=== PATIENT | female | born 1955 | race Caucasian/White ===

== ENCOUNTER 2019-01-11 06:00 | Day surgery (SDC) | payer OTHER ==
[~2019-01-11] VITALS: Ht 157.5 cm; Wt 104.2 kg
--- NOTE | 2019-01-11 07:27 | PREAC ---
Date/Time of Note Date/Time of Note DATE: 01/11/19 TIME: 07: Anesthesia Eval and Record Evaluation Time Pre-Procedure Interview DATE: 01/11/19 TIME: : Age 63 Sex female NPO: 8 hrs Preoperative diagnosis screening colon cancer Planned procedure colonoscopy Past Medical History Past Medical History: Includes Neuro: Other (chronic back pain) GI: Obesity Surgery & Anesthesia Issues No known issue Meds Anticoagulation: No Beta Stas within 24 hr: No Reason Beta Stas not given: Pt. not on B-Stas Meds reviewed: Yes Allergies Allergies Reviewed: Yes Labs/Studies Labs Reviewed: Other (n/a) test: N/A Pre-procedure Exam Airway: Adequate mouth opening, Adequate thyromental dist Mallampati: Mallampati II Teeth: Normal (upper partial dentures) Lung: Normal Heart: Normal ASA Physical Status ASA physical status: 2 Emergency: None Planned Anesthetic General/MAC: MAC, TIVA Planned Pain Management Parenteral pain med, Local by surgeon Pre-operative Attestations Prior to commencing anesthesia and surgery, the patient was re-evaluated, there was verification of: *The patient's identity *The results of appropriate recent lab work and preoperative vital signs *The above evaluation not changing prior to induction *Anesthetic plan, risk benefits, alternative and complications discussed with patient/family; questions answered; patient/family understands, accepts and wishes to proceed. JAYSON RIOS Jan 11, 2019 07:27
[2019-01-11 07:28] VITALS: Ht 157.5 cm; Wt 104.2 kg
[2019-01-11] MEDS ORDERED: PROPOFOL 40 ML ONE (07:28)
[2019-01-11 07:35] VITALS: BP 156/84; PULSE 84; RESP 20
[2019-01-11] MEDS ORDERED: gabapentin PO (07:38)
[2019-01-11] MEDS ORDERED: diclofenac PO (07:38)
[2019-01-11 08:36] VITALS: BP 126/77; PULSE 75; RESP 18
--- NOTE | 2019-01-11 08:46 | PAC ---
Date/Time of Note Date/Time of Note DATE: 01/11/19 TIME: 08:45 Post-Anesthesia Notes Post-Anesthesia Note Last documented vital signs post Bp hr 76 BP 106/63 Temp 98 rr 16 spo2 96% Vital Signs Date Temp Pulse Resp B/P (MAP) Pulse Ox O2 O2 Flow FiO2 Time Delivery Rate 01/11/19 97.9 84 20 156/84 95 Room Air 07:35 (108) Activity: WNL Respiratory function: WNL Cardiovascular function: WNL Mental status: Baseline Pain reasonably controlled: Yes Hydration appropriate: Yes Nausea/Vomiting absent: Yes JAYSON RIOS Jan 11, 2019 08:46
== END 2019-01-11 12:07 | disposition home or self-care (01) ==
LOC: GIL 06:00
PROVIDERS: ATTEND Internal Medicine Gastroenterology
DX: Z12.11 Encounter for screening for malignant neoplasm of colon (principal); K64.8 Other hemorrhoids
CPT/HCPCS: 45378; Z7610